=== PATIENT | female | born 1945 | race Caucasian/White ===

== ENCOUNTER 2018-04-19 12:22 | Outpatient (CLI) | payer MEDICARE, BC ==
--- NOTE | 2018-04-19 16:15 | MMO ---
BILATERAL SCREENING MAMMOGRAM: Date: 04/19/18 COMPARISON: 10/27/15, 07/19/14, 07/18/13. HISTORY: Annual screening exam. This patient's mammogram was interpreted with the assistance of computer-aided detection. FINDINGS: Scattered fibroglandular changes of both breasts are present. Area of slight parenchymal asymmetry in the upper outer left breast is stable. Benign calcifications are seen in both breasts. IMPRESSION: BIRADS 2: Benign Finding(s) POS: [facility]
== END 2018-04-19 12:23 | disposition home or self-care (01) ==
LOC: SCSMAMMO 12:22
PROVIDERS: ATTEND Family Medicine
DX: Z12.31 Encounter for screening mammogram for malignant neoplasm of breast (principal)
CPT/HCPCS: 77067

== ENCOUNTER 2022-03-04 12:21 | Outpatient (CLI) | payer MEDICARE, BC | END 2022-03-04 12:22 | disposition home or self-care (01) | LOC: BICMAMMO 12:21 | PROVIDERS: ATTEND Family Medicine | DX: N63.10 Unspecified lump in the right breast, unspecified quadrant (principal) | CPT/HCPCS: 77065; G0279 ==